=== PATIENT | female | born 1990 | race Hispanic/Latino ===

== ENCOUNTER 2018-08-04 21:04 | Emergency (ER) | payer BC ==
[2018-08-04 21:14] VITALS: RESP 18; O2SAT 98
[2018-08-04 21:15] VITALS: BMI 23.1
[2018-08-04 22:43] LABS: BASO % 0.3 % (0.0-2.0); HEMOGLOBIN 13.4 g/dL (12.0-16.0); LYMPH # 0.5 K/uL (1.0-4.3); LYMPH % 7.8 % (20.0-40.0); MEAN CELL VOLUME 92.9 fl (81.0-99.0); MEAN CORPUSCULAR HEMOGLOBIN 31.7 pg (27.0-31.0); MEAN CORPUSCULAR HGB CONC 34.1 g/dL (33.0-37.0); MEAN PLATELET VOLUME 9.3 fl (7.2-11.7); MONO # 0.6 K/uL (0.0-0.8); MONO % 8.8 % (0.0-10.0); NEUT # 5.7 K/uL (1.8-7.0); NEUT % 83.1 % (50.0-75.0); NRBC % 0.2 % (0.0-0.0); PLATELET COUNT 172 K/uL (130-400); RBC 4.23 Mil/uL (3.80-5.20); RED CELL DISTRIBUTION WIDTH 12.6 % (11.5-14.5); WHITE BLOOD COUNT 6.8 K/uL (4.8-10.8)
--- NOTE | 2018-08-04 22:49 | ED PDOC ---
HPI: Influenza Time Seen by Provider: 08/04/18 21:33 Chief Complaint: Flu-like Symptoms Chief Complaint (Provider): fever, body aches and abdominal pain History Per: Patient Exam Limitations: no limitations Have you had recent travel within the past 21 days to any of: No Symptoms include: fever, bodyaches, difficulty breathing. 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 Patient states that she developed a fever 3 days ago and has been having body aches. She then developed sharp abdominal pain and SOB yesterday morning. Denies N/V, diarrhea, cough, nasal congestion. No flu shot this season, no sick contacts. Last BM today, soft, no diarrhea. No hx of abdominal surgery. Past Medical History Reviewed: Historical Data, Nursing Documentation, Vital Signs Vital Signs: Last Vital Signs Temp 100.6 F H 08/04/18 21:13 Pulse 131 H 08/04/18 21:13 Resp 18 08/04/18 21:13 BP 113/74 08/04/18 21:13 Pulse Ox 98 08/04/18 21:13 - Medical History PMH: Pneumonia Other PMH: benign pituitary tumor, [place] as a child. - Surgical History Surgical History: Tonsillectomy - Family History Family History: States: Unknown Family Hx - Social History Current smoker - smoking cessation education provided: No Drugs: Denies - Immunization History Hx Influenza Vaccination: No - Home Medications Home Medications: Ambulatory Orders Medication Instructions Recorded Ibuprofen [Motrin Tab] 600 mg PO Q6 PRN 5 Days tab 08/05/18 Simethicone [Gas Relief] 80 mg PO PC PRN 5 Days tab.chew 08/05/18 - Allergies Allergies/Adverse Reactions: Allergies Allergy/AdvReac Type Severity Reaction Status Date / Time No Known Allergies Allergy Verified 08/04/18 21:14 Physical Exam - Reviewed Nursing Documentation Reviewed: Yes Vital Signs Reviewed: Yes - Physical Exam Appears: Positive for: Uncomfortable Skin: Positive for: Warm (flushed) Eye Exam: Positive for: Normal appearance ENT: Positive for: Normal ENT Inspection Neck: Positive for: Normal Cardiovascular/Chest: Positive for: Regular Rate, Rhythm Respiratory: Positive for: Normal Breath Sounds Gastrointestinal/Abdominal: Positive for: Tenderness (RUQ and LUQ tenderness on palpation, mild diffuse lower abdominal tenderness. ) Back: Positive for: Normal Inspection Lymphatic: Positive for: Normal Exam Neurologic/Psych: Positive for: Alert, Oriented Medical Decision Making Medical Decision Making: cbc, CMP Urine preg Urine dip GB ultrasound Tylenol 650mg PO x 1 for fever Rapid flu [place] Urine dip: No LE or Nitrites but mod blood Gallbladder U/S: two echogenic lesions compatible with hemangiomas at Right hepatic lobe. Contracted gallbladder. Excessive bowel gas at pancreatic head region. Simethicone ordered Ibuprofen 600mg PO x 1 body aches. Re-evaluated at 1:30am: Fever defervesced to 98.4F and symptoms improved. Ultrasound findings discussed with patient and Return instructions given. Recommended f/u with PMD for repeat urine study to evaluate blood in urine. - Laboratory Results Result Diagrams: 08/04/18 22:40 08/04/18 22:40 - ECG O2 Sat by Pulse Oximetry: 98 Disposition - Clinical Impression Clinical Impression: Systemic viral illness - Patient ED Disposition Is Patient to be Admitted: No Counseled Patient/Family Regarding: Studies Performed, Diagnosis, Need For Followup, Rx Given - Disposition Disposition: Routine/Home Disposition Time: 02:14 Condition: STABLE Additional Instructions: Return to ER if your abdominal pain worsens or if you have worsening shortness of breath. Take Simethicone for gas. Prescriptions: Ibuprofen [Motrin Tab] 600 mg PO Q6 PRN 5 Days tab PRN Reason: Pain, Moderate (4-7) Simethicone [Gas Relief] 80 mg PO PC PRN 5 Days tab.chew PRN Reason: Flatulence Forms: [employer] Print Language: LATVIAN
[2018-08-04 22:53] LABS: ALB/GLOB RATIO 1.1 (1.0-2.1); ALBUMIN 4.3 g/dL (3.5-5.0); ALT/SGPT 29 U/L (9-52); AST/SGOT 27 U/L (14-36); BLOOD UREA NITROGEN 15 mg/dl (7-17); CALCIUM 9.3 mg/dL (8.4-10.2); GFR NON-AFRICAN AMERICAN > 60
[2018-08-05 01:14] LABS: BANDS 6 % (0-2); LYMPHOCYTE 7 % (20-50); MONOCYTE 7 % (0-10); NEUTROPHIL 79 % (42-75); PLATELET CLUMPS PRESENT; PLATELET ESTIMATE NORMAL (NORMAL); REACTIVE LYMPHOCYTES 1 % (0-0); TOTAL CELLS COUNTED 100
[2018-08-05] MEDS: Simethicone 80 mg Chewtab PO STA (01:22)
[2018-08-05 01:25] VITALS: BP 105/64; PULSE 90
[2018-08-05 02:17] VITALS: TEMP 98.4
--- NOTE | 2018-08-05 07:58 | RAD ---
Date of service: 08/04/2018 HISTORY: shortness of breath, cough COMPARISON: No prior. TECHNIQUE: Chest PA and lateral FINDINGS: LUNGS: No active pulmonary disease. PLEURA: No significant pleural effusion identified. No pneumothorax apparent. CARDIOVASCULAR: No aortic atherosclerotic calcification present. Normal cardiac size. No pulmonary vascular congestion. OSSEOUS STRUCTURES: No significant abnormalities. VISUALIZED UPPER ABDOMEN: Normal. OTHER FINDINGS: None. IMPRESSION: No active disease.
--- NOTE | 2018-08-05 08:58 | US ---
Date of service: 08/04/2018 HISTORY: LUQ and RUQ pain COMPARISON: None. TECHNIQUE: Sonographic evaluation of the right upper quadrant of the abdomen. FINDINGS: LIVER: Measures 15.6 cm in length. Normal echogenicity of the liver parenchyma. Two round hyperechoic masses in the right hepatic lobe are present: 1.2 x 1.6 x 1.6 cm and 1.0 x 0.9 x 0.7 cm. There appearances compatible with benign hemangiomas. I am not aware of any other positive oncological history in this 28-year-old female. No intrahepatic bile duct dilatation. GALLBLADDER: Contracted. No gallstones. No pericholecystic fluid. No suspect gallbladder wall thickening No sonographic positive Souza sign elicited. COMMON BILE DUCT: Measures 3.9 mm. No stones. No dilatation. PANCREAS: Unremarkable as visualized. No mass. No ductal dilatation. RIGHT KIDNEY: Measures 9.9 x 5.1 x 6.2 cm in length. Normal echogenicity. No calculus, mass, or hydronephrosis. AORTA: No aneurysmal dilatation. IVC: Unremarkable. OTHER FINDINGS: None . IMPRESSION: The 2 right hepatic lobe hyper echogenic mass is are compatible with benign incidental hemangiomas. If no other outside studies exists, consider six-month rechecking of them to ensure their stability. Contracted gallbladder-no gallstones or other suspect gallbladder pathology noted. Concordant results (preliminary interpretation) provided by [email or web address].
== END 2018-08-05 02:17 | disposition home or self-care (01) ==
LOC: H.ER 21:04
DX: M79.10 Myalgia, unspecified site (principal); B34.9 Viral infection, unspecified